=== PATIENT | male | born 1985 | race Caucasian/White ===

== ENCOUNTER 2018-10-27 10:50 | Emergency (ER) | payer OTHER ==
[2018-10-27] MEDS ORDERED: ALBUTEROL/IPRATROPIUM 1 VIAL SOL INH ONE (11:03)
[2018-10-27] MEDS ORDERED: ALBUTEROL/IPRATROPIUM 1 VIAL SOL ONE (11:04)
[2018-10-27] MEDS ORDERED: DIPHENHYDRAMINE 25 MG CAP PO ONE (11:31)
[2018-10-27] MEDS ORDERED: PREDNISONE 20 MG TAB PO ONE (11:31)
[2018-10-27 11:37] VITALS: TEMP 97.1
[2018-10-27] MEDS ORDERED: DIPHENHYDRAMINE 25 MG CAP ONE (11:38)
[2018-10-27] MEDS ORDERED: PREDNISONE 20 MG TAB ONE (11:38)
[2018-10-27 12:59] VITALS: BP 107/74; PULSE 76; RESP 20; O2SAT 99
== END 2018-10-27 12:44 | disposition home or self-care (01) | DRG 918 ==
LOC: ED 10:50
DX: T63.481A Toxic effect of venom of other arthropod, accidental (unintentional), initial encounter (principal); L03.90 Cellulitis, unspecified; R06.02 Shortness of breath; R06.2 Wheezing
CPT/HCPCS: 99283; 99291; A9270-GY